=== PATIENT | male | born 1995 | race Caucasian/White ===

== ENCOUNTER 2022-08-08 17:30 | Day surgery (SDC) | payer OTHER ==
[2022-08-08] MEDS ORDERED: ONDANSETRON 4 MG/2 ML VIAL IVPUSH ONE (18:09)
[2022-08-08] MEDS ORDERED: ACETAMINOPHEN 1000 MG/100 ML BAG IVPB ONE (18:09)
[2022-08-08] MEDS ORDERED: FAMOTIDINE 20 MG/50 ML IVPB 20 MG/50 ML MG IVPB ONE ×2 (18:10→18:39)
[2022-08-08] MEDS ORDERED: MAG HYDROX/AL HYDROX/SIMETH 30 ML UNIT-DOSE CUP PO ONE (18:34)
[2022-08-08] MEDS ORDERED: ACETAMINOPHEN INJECTION 100 ML IVPB ONE (18:38)
[2022-08-08] MEDS ORDERED: MAG HYDROX/AL HYDROX/SIMETH 30 ML UNIT-DOSE CUP ONE (18:39)
[2022-08-08] MEDS ORDERED: ONDANSETRON 4 MG/2 ML VIAL ONE (18:39)
[2022-08-08 19:48] LABS: BASO % 0.5 % (0-2.0); EOS % 1.8 % (0-4.5); HEMATOCRIT 42.1 % (35.4-49); HEMOGLOBIN 14.5 GM/dL (11.7-16.9); LYMPH % 17.6 % (8-40); MCH 29.4 pg (25.7-33.7); MCHC 34.6 g/dl (32.0-35.9); MEAN PLT VOLUME 8.3 fl (7.5-11.1); MONO % 8.1 % (3.8-10.2); PLATELET COUNT 312 10^3/uL (134-434); RBC 4.95 M/mm3 (4.00-5.60); RDW 13.8 % (11.9-15.9); WHITE BLOOD COUNT 14.1 K/mm3 (4.0-10.0)
[2022-08-08 20:11] LABS: ALBUMIN 4.1 g/dl (3.4-5.0); BLOOD UREA NITROGEN 15.9 mg/dL (7-18)
[2022-08-08 20:12] LABS: CREATININE 0.9 mg/dL (0.55-1.3)
[2022-08-08 20:14] LABS: TOT PROT 7.6 g/dl (6.4-8.2)
[2022-08-08] MEDS ORDERED: morphine SULFATE 4 MG/ML VIAL IVPUSH ONE (21:42)
[2022-08-09] MEDS ORDERED: CEFTRIAXONE 1 GM in DEXTROSE 5%-WATER - 100 ML IVPB ONE (02:31)
[2022-08-09] MEDS ORDERED: morphine CARPU-JECT 4 MG/1 ML DISP.SYRIN IVPUSH ONE (02:41)
[2022-08-09] MEDS ORDERED: morphine SULFATE 4 MG/ML VIAL ONE (03:09)
[2022-08-09] MEDS ORDERED: CEFTRIAXONE 1 GM/50 ML BAG ONE (03:09)
[2022-08-09 03:54] LABS: INR 1.2 (0.83-1.09); PROTHROMBIN TIME (PATIENT) 13.8 SEC (9.7-13.0)
[2022-08-09 03:57] LABS: ACTIVATED PTT 34.3 SECONDS (25.2-36.5)
[2022-08-09] MEDS ORDERED: SODIUM CHLORIDE 1,000 ML IV STA ×2 (04:56→05:19)
[2022-08-09] MEDS ORDERED: BUPIVACAINE HCL/PF 0.25% (2.5MG/ML) 10 ML VIAL ONE (07:27)
[2022-08-09] MEDS ORDERED: SODIUM CHLORIDE 1,000 ML IV SCH (08:00)
[2022-08-09] MEDS ORDERED: HEPARIN NA (PORCINE) 5,000 UNITS/ML 1ML VIAL SQ ONE ×2 (09:18→17:39)
[2022-08-09] MEDS ORDERED: HEPARIN NA (PORCINE) 5,000 UNITS/ML 1ML VIAL ONE (09:20)
[2022-08-09] MEDS ORDERED: LACTATED RINGERS SOLUTION 1,000 ML IV SCH (10:00)
[2022-08-09] MEDS ORDERED: ONDANSETRON 4 MG/2 ML VIAL IVPUSH PRN (10:00)
[2022-08-09] MEDS ORDERED: MIDAZOLAM HCL 2 MG/2 ML SINGLE DOSE VIAL ONE (10:09)
[2022-08-09] MEDS ORDERED: PROPOFOL 20 ML ONE (10:09)
[2022-08-09] MEDS ORDERED: ROCURONIUM BROMIDE 50 MG/5 ML SYRINGE ONE (10:09)
[2022-08-09] MEDS ORDERED: DEXAMETHASONE SOD PHOSPHATE 4 MG/1 ML VIAL ONE (10:41)
[2022-08-09] MEDS ORDERED: BUPIVACAINE HCL/PF 0.25% (2.5MG/ML) 10 ML VIAL IJ ONE (10:43)
[2022-08-09] MEDS ORDERED: GLYCOPYRROLATE 0.2 MG/1 ML VIAL ONE (10:46)
[2022-08-09] MEDS ORDERED: NEOSTIGMINE METHYLSULFATE 0.5 MG/ML - 10 ML MDV ONE (10:46)
[2022-08-09] MEDS ORDERED: BENZOIN/ALOE VERA/STORAX/TOLU 58 ML BOTTLE TP ONE (10:50)
[2022-08-09] MEDS ORDERED: KETOROLAC TROMETHAMINE 30 MG/1 ML VIAL ONE ×2 (11:25→18:15)
[2022-08-09] MEDS ORDERED: KETOROLAC TROMETHAMINE 30 MG/1 ML VIAL IVPUSH ONE (11:28)
[2022-08-09] MEDS: KETOROLAC TROMETHAMINE 30 MG/1 ML VIAL IVPUSH SCH ×2 (11:38→18:16)
[2022-08-09 20:38] VITALS: BMI 35.9
[2022-08-09] MEDS: LACTATED RINGERS SOLUTION 1,000 ML IV SCH (20:59)
[2022-08-10 02:08] VITALS: RESP 16
[2022-08-10] MEDS: KETOROLAC TROMETHAMINE 30 MG/1 ML VIAL IVPUSH SCH (02:43)
[2022-08-10] MEDS: LACTATED RINGERS SOLUTION 1,000 ML IV SCH (02:44)
[2022-08-10] MEDS ORDERED: ENOXAPARIN NA (PORCINE) 40 MG/0.4 ML DISP.SYRIN SQ SCH (10:00)
[2022-08-10 10:24] VITALS: BP 115/60; PULSE 69; TEMP 98.6
== END 2022-08-10 13:10 | disposition home or self-care (01) ==
LOC: JER 17:30 → JASUSAT 08-09 02:56 → UNDOADMIN 08-09 02:56 → JERBED 08-09 02:56 → J5S 08-09 18:30 → JASUSAT 08-10 13:06
PROVIDERS: ATTEND Nurse Practitioner Acute Care
PROC: 0DTJ4ZZ Resection of Appendix, Percutaneous Endoscopic Approach (ICD-10-PCS; principal; 2022-08-09 09:30)
DX: K35.80 Unspecified acute appendicitis (principal)
CPT/HCPCS: 36415; 71045-TC-FY; 74177-TC; 76705-TC; 80053; 83690; 85025; 85610; 85730; 86850; 86900; 86901; 88304-TC; 93005; 93010; 94760; 99285-25; C9803-CS; J1644; Q9967; U0003; U0005

== ENCOUNTER 2025-07-06 21:54 | Emergency (ER) | payer OTHER ==
[~2025-07-06 21:54] MED LIST: LIDOCAINE PATCH REMOVAL MC ONE
[2025-07-06 22:00] VITALS: RESP 18; BMI 38.7
[2025-07-06] MEDS ORDERED: ACETAMINOPHEN 500 MG TABLET (FP) ONE (23:05)
[2025-07-06] MEDS ORDERED: LIDOCAINE 4% PATCH TP ONE (23:06)
[2025-07-06] MEDS: ACETAMINOPHEN 500 MG TABLET (FP) PO ONE (23:18)
[2025-07-06] MEDS: LIDOCAINE 5% TOPICAL PATCH TP ONE (23:18)
[2025-07-06] MEDS: LIDOCAINE PATCH REMOVAL MC SCH (23:19)
[2025-07-07 00:57] VITALS: BP 138/76; PULSE 70; TEMP 98.1
[2025-07-07] MEDS ORDERED: LIDOCAINE PATCH REMOVAL MC ONE (11:00)
== END 2025-07-07 00:56 | disposition home or self-care (01) ==
LOC: JERFT 21:54 → JER 21:54
DX: S59.902A Unspecified injury of left elbow, initial encounter (principal); M54.2 Cervicalgia; M54.50 Low back pain, unspecified; R20.2 Paresthesia of skin; M79.605 Pain in left leg; R51.9 Headache, unspecified; W01.198A Fall on same level from slipping, tripping and stumbling with subsequent striking against other object, initial encounter; Y93.E1 Activity, personal bathing and showering
CPT/HCPCS: 73070-TC-LT-FY; 99283-25